=== PATIENT | female | born 1965 | race Caucasian/White ===

== ENCOUNTER 2017-12-28 19:15 | Emergency (ER) | payer OTHER ==
[2017-12-28 19:36] VITALS: O2SAT 100
--- NOTE | 2017-12-28 19:46 | ERPHSYRPT ---
- History of Present Illness Time Seen by Provider: 12/28/17 19:46 Patient Subjective Stated Complaint: feeling of food stuck in mouth for a week, started vomitting and having a sorte throat on 12/24/17, no known fever, pt reports chilling. Triage Nursing Assessment: pt JOSE, pt tongue has a white area on the left front area. breath sounds clear. heart sounds regular. bowel sounds x4. no edema noted. Physician History: 52-year-old female without any significant past medical history recently moved to [facility] for last 1-2 weeks. She started having a sore throat, fever, chills. She feels like there is something stuck in her throat, as well as see has a very sore tongue. Patient denies any other past medical history, although patient has a elevated blood pressure in the emergency room on the first reading which was 155/115. After 30 minutes and another blood pressure reading was taken, it was down to 142/90. Patient denies any headache, chest pain, but complaining of somewhat nausea, vomiting, and chills. Timing/Duration: week(s) Cough Quality/Degree: no cough Associated Symptoms: chills, muscle aches, sore throat International travel in last 2 weeks: No Allergies/Adverse Reactions: No Known Drug Allergies Allergy (Unverified 12/28/17 19:50) Hx Tetanus, Diphtheria Vaccination/Date Given: No Hx Influenza Vaccination/Date Given: Yes Hx Pneumococcal Vaccination/Date Given: No Immunizations Up to Date: No - Review of Systems Constitutional: Chills, No Fever Eyes: No Symptoms Ears, Nose, & Throat: No Symptoms, Throat Pain, Hoarse, Painful Swallowing, No Throat Swelling Respiratory: No Cough, No Dyspnea Cardiac: No Chest Pain, No Edema, No Syncope Abdominal/Gastrointestinal: No Abdominal Pain, No Nausea, No Vomiting, No Diarrhea Genitourinary Symptoms: No Dysuria Musculoskeletal: No Back Pain, No Neck Pain Skin: No Rash Neurological: No Dizziness, No Focal Weakness, No Sensory Changes Psychological: No Symptoms Endocrine: No Symptoms All Other Systems: Reviewed and Negative - Past Medical History Pertinent Past Medical History: Yes Neurological History: Other ENT History: No Pertinent History Cardiac History: No Pertinent History Respiratory History: No Pertinent History Endocrine Medical History: No Pertinent History Musculoskeletal History: No Pertinent History GI Medical History: Ulcer History: No Pertinent History Psycho-Social History: Anxiety, Depression Female Reproductive Disorders: No Pertinent History - Past Surgical History Past Surgical History: Yes Neuro Surgical History: No Pertinent History Cardiac: No Pertinent History Gastrointestinal: Colon Resection Genitourinary: No Pertinent History Musculoskeletal: No Pertinent History Female Surgical History: Section - Social History Smoking Status: Never smoker Exposure to second hand smoke: No Drug Use: none - Female History Hx Now: No - Nursing Vital Signs Nursing Vital Signs: Initial Vital Signs Temperature 97.8 F 12/28/17 19:21 Pulse Rate 77 12/28/17 19:21 Respiratory Rate 16 12/28/17 19:21 Blood Pressure 154/115 12/28/17 19:21 O2 Sat by Pulse Oximetry 100 12/28/17 19:21 Pain Scale Pain Intensity 8 - Physical Exam General Appearance: mild distress Eye Exam: PERRL/EOMI Ears, Nose, Throat Exam: pharyngeal erythema Neck Exam: normal inspection Respiratory Exam: normal breath sounds Cardiovascular Exam: regular rate/rhythm Gastrointestinal/Abdomen Exam: soft SpO2: 100 - Course Nursing assessment & vital signs reviewed: Yes - Progress Progress: improved Air Movement: good Blood Culture(s) Obtained: No Antibiotics given: Yes Counseled pt/family regarding: diagnosis, need for follow-up - Departure Time of Disposition: 19:56 Departure Disposition: Home Clinical Impression: Pharyngitis due to Streptococcus species Condition: Stable Critical Care Time: No Referrals: XAVI BYNUM MD [ACTIVE STAFF] - Instructions: Sore Throat, Adult (DC) Additional Instructions: UPPER RESPIRATORY INFECTIONS 1. The signs and symptoms of a cold may last up to 10 days. These illnesses are due to viruses which are not treatable with antibiotics. 2. The following suggestions can aid in recovery and to minimize symptoms: A. Increase fluid intake. B. Acetaminophen or Ibuprofen as directed. C. Avoid smoking environments as this will increase the risk of developing pneumonia. D. For children, may use a cool mist vaporizer in the child's room. 3. Contact your Family Physician if you note: A. Persisten fever >103 for more than 3 days B. Breathing difficulty C. Productive cough of yellow/green sputum D. Illness greater than 7 days E. Persistent vomiting F. Stiff neck KINGZOË TERRY was seen on 12/28/17 n the Emergency Room. At that time you were treated for an emergent condition, during your visit Laboratory, Radiology and/or other procedures may have been ordered. It is very important that you follow-up with your Primary Care Physician within the next 24-48 hours to review your Emergency Room visit and the final results of testing that was ordered. Some test results such as Urine Cultures, Blood Cultures, and other cultures if ordered will not be finalized for 24-48 hours. If you do not have a Primary Care Provider please call the medical records department at [phone] to obtain a copy of your results or you may sign into our patient portal to obtain these results by visiting us @ [email or web address] and completing the following steps: 1. Click on the Patient Portal link 2. Click the Patient Self Enrollment Link to complete the enrollment form and entering your 3. Once the enrollment form is completed you will receive an email with a temporary ID and password at the email address you provided. 4. Next choose a user name and password. Your user name must be at least 4 characters long and your password must be at least 4 characters long. 5. Choose a security question from the list and provide your answer to the question. If you already have signed into the Health Portal you may access your Health Care Information 30/04 by the following steps: 1. Login to our website @ [email or web address] 2. Enter your original user name and password. FAQS The [facility] Health Portal is an online tool that contains your Lab Results, Radiology Reports, Visit History, Discharge Instructions and Health Summary Lab and Radiology Results will not be available for 72 hours on the portal. The Portal is a secure site, passwords are encryted and URLs are re-written so they cannot be copied and pasted. You and authorized family members are the only ones who can access your Portal. Also there is a timeout feature that protects your information if you leave the Portal page open. If you have technical difficulty please use the Contact Us link on the page this will allow you to submit any questions you have regarding the Portal or you may contact the Medical Record Department at [phone]. Prescriptions: Amoxicillin 500 mg PO TID #30 tablet Naproxen 375 mg [Naprosyn 375 mg] 375 mg PO Q8H #15 tablet
[2017-12-28] MEDS ORDERED: Phenergan 25 MG INJ IM ONE (19:58)
[2017-12-28] MEDS ORDERED: Rocephin 1000 MG INJ IM ONE (19:58)
[2017-12-28] MEDS ORDERED: Phenergan 25 MG INJ ONE (20:02)
[2017-12-28] MEDS ORDERED: Rocephin 1000 MG INJ ONE (20:02)
[2017-12-28 20:19] VITALS: BP 140/82; PULSE 72
== END 2017-12-28 20:42 | disposition home or self-care (01) ==
LOC: ED 19:15
DX: J02.0 Streptococcal pharyngitis (principal)
CPT/HCPCS: 96372; 99282; J0696; J2550